=== PATIENT | male | born 1955 | race Caucasian/White ===

== ENCOUNTER 2019-07-05 08:44 | Outpatient (CLI) | payer OTHER ==
[2019-07-05 18:05] LABS: CHOL/HDL RATIO 3.7 (<5.0); CHOLESTEROL 165 mg/dL; GLUCOSE,FASTING 107 mg/dL (70-100); HDL CHOLESTEROL 45 mg/dL; LDL CHOLESTEROL,CALCULATED 106 mg/dL; LDL/HDL RATIO 2.4 (<3.6); VLDL CHOLESTEROL 14 mg/dL
[2019-07-06 13:11] LABS: HEPATITIS C ANTIBODY NON-REACTIVE (NON-REACTIVE)
== END 2019-07-05 08:45 | disposition home or self-care (01) ==
LOC: LAB.S 08:44
PROVIDERS: ATTEND Internal Medicine
DX: Z00.00 Encounter for general adult medical examination without abnormal findings (principal); Z11.59 Encounter for screening for other viral diseases; Z12.11 Encounter for screening for malignant neoplasm of colon; Z13.6 Encounter for screening for cardiovascular disorders; Z13.1 Encounter for screening for diabetes mellitus
CPT/HCPCS: 36415; 80061; 82947; 83721; 86803

== ENCOUNTER 2021-04-10 14:53 | Outpatient (CLI) | payer OTHER | END 2021-04-10 14:54 | disposition home or self-care (01) | LOC: LAB.S 14:53 | PROVIDERS: ATTEND Internal Medicine | DX: Z53.9 Procedure and treatment not carried out, unspecified reason (principal); Z12.11 Encounter for screening for malignant neoplasm of colon ==

== ENCOUNTER 2021-04-11 08:00 | Outpatient (CLI) | payer OTHER ==
[2021-04-11 15:18] LABS: FECAL OCCULT BLOOD (FIT) NEGATIVE (NEGATIVE)
== END 2021-04-11 08:01 | disposition home or self-care (01) ==
LOC: LAB.S 08:00
PROVIDERS: ATTEND Internal Medicine
DX: Z12.11 Encounter for screening for malignant neoplasm of colon (principal)
CPT/HCPCS: 82274

== ENCOUNTER 2023-05-17 11:32 | Outpatient (CLI) | payer MEDICARE, BC ==
[2023-05-17 21:42] LABS: ESTIMATED AVERAGE GLUCOSE 111 mg/dL (70-100); HEMOGLOBIN A1c% 5.5 % (4.27-6.07)
== END 2023-05-17 11:33 | disposition home or self-care (01) ==
LOC: LAB.S 11:32
PROVIDERS: ATTEND Internal Medicine
DX: R73.01 Impaired fasting glucose (principal)
CPT/HCPCS: 36415; 83036

== ENCOUNTER 2023-11-27 08:00 | Outpatient (CLI) | payer MEDICARE, BC ==
[2023-11-27 17:52] LABS: FECAL OCCULT BLOOD (FIT) NEGATIVE (NEGATIVE)
== END 2023-11-27 23:59 | disposition home or self-care (01) ==
LOC: LAB.R 08:00
PROVIDERS: ATTEND Internal Medicine
DX: Z12.11 Encounter for screening for malignant neoplasm of colon (principal)
CPT/HCPCS: 82274

== ENCOUNTER 2023-12-27 08:23 | Outpatient (CLI) | payer MEDICARE, BC ==
--- NOTE | 2023-12-27 10:15 | Ultrasound Report ---
PROCEDURE: Aorta Screening INDICATIONS: HIST OF SMOKING TECHNIQUE: Real time scanning was performed of the aorta and iliac arteries, with image documentatio n. COMPARISON: None. FINDINGS: Aorta: Proximal aortic diameter measures 2.9 cm. Mid-aorta measures 2.2 cm. Distal aortic diameter is 1.7 cm. Iliac arteries: Right common iliac artery measures 1.4 cm. Left common iliac artery measures 1.4 cm . IMPRESSION: Mild ectasia of the aorta measuring 2.9 cm. Recommend 5 year follow-up. Recommended intervals for follow-up imaging of ectatic aortas and abdominal aortic aneurysms, per ACR consensus guidelines: 2.5-2.9 cm: 5 years 3.0-3.4 cm: 3 years 3.5-3.9 cm: 2 years 4.0-4.4 cm: 1 year 4.5-4.9 cm: 6 months + endovascular referral 5.0-5.5 cm: 3-6 months + endovascular referral Reviewed by: John Meyer MD on 12/27/2023 10:13 AM PST Approved by: John Meyer MD on 12/27/2023 10:13 AM PST Station ID: [id number]
== END 2023-12-27 08:24 | disposition home or self-care (01) ==
LOC: DI 08:23
PROVIDERS: ATTEND Internal Medicine
DX: Z13.6 Encounter for screening for cardiovascular disorders (principal); Z87.891 Personal history of nicotine dependence; I77.810 Thoracic aortic ectasia

== ENCOUNTER 2024-01-25 10:23 | Outpatient (CLI) | payer MEDICARE, BC ==
[2024-01-25 15:46] LABS: BUN - BLOOD UREA NITROGEN 24 mg/dL (6-20); CALCIUM 9.9 mg/dL (8.5-10.3); CARBON DIOXIDE - CO2 31 mmol/L (21-32); CHLORIDE 106 mmol/L (101-111); CHOL/HDL RATIO 3.5 (<5.0); CHOLESTEROL 145 mg/dL; CREATININE 0.9 mg/dL (0.6-1.3); GFR - MDRD 84 (>89); GLUCOSE 96 mg/dL (74-104); HDL CHOLESTEROL 42 mg/dL; LDL CHOLESTEROL,CALCULATED 75 mg/dL; LDL/HDL RATIO 1.8 (<3.6); POTASSIUM 4.2 mmol/L (3.5-4.5); SODIUM 141 mmol/L (135-145); TRIGLYCERIDES 140 mg/dL (48-352); VLDL CHOLESTEROL 28 mg/dL
[2024-01-25 20:34] LABS: BILIRUBIN,URINE NEGATIVE (NEGATIVE); GLUCOSE, URINE (UA) NEGATIVE (NEGATIVE); KETONES,URINE (UA) NEGATIVE (NEGATIVE); LEUKOCYTE ESTERASE, URINE NEGATIVE (NEGATIVE); NITRITE,URINE NEGATIVE (NEGATIVE); OCCULT BLOOD,URINE NEGATIVE (NEGATIVE); PROTEIN,URINE NEGATIVE (NEGATIVE); UROBILINOGEN,URINE 0.2 (NORMAL) E.U./dL (NORMAL)
[2024-01-25 20:35] LABS: CLARITY,URINE CLOUDY (CLEAR)
[2024-01-25 20:42] LABS: WBC,URINE 0-3 /HPF (0-3)
[2024-01-25 20:43] LABS: AMORPHOUS SEDIMENT,UR Moderate /LPF; BACTERIA,URINE None Seen /HPF (None Seen); RBC,URINE None Seen /HPF (0-5); SQUAMOUS EPITHELIAL CELL,UR NONE SEEN (<= Few)
[2024-01-25 21:03] LABS: ESTIMATED AVERAGE GLUCOSE 103 mg/dL (70-100); HEMOGLOBIN A1c% 5.2 % (4.27-6.07)
== END 2024-01-25 10:24 | disposition home or self-care (01) ==
LOC: LAB.S 10:23
PROVIDERS: ATTEND Internal Medicine
DX: R73.01 Impaired fasting glucose (principal); R31.0 Gross hematuria; Z13.220 Encounter for screening for lipoid disorders
CPT/HCPCS: 36415; 80048; 80061; 81001; 83036; 83721; 84153; 87086

== ENCOUNTER 2024-02-14 17:22 | Outpatient (CLI) | payer MEDICARE, BC ==
--- NOTE | 2024-02-15 16:40 | Ultrasound Report ---
PROCEDURE: Renal (Retroperitoneal) INDICATIONS: RENAL CALCUS TECHNIQUE: Real-time scanning was performed of the retroperitoneal organs, with image documentation. COMPARISON: None. FINDINGS: Kidneys: Kidneys are normal in size. Right kidney measures 13.4 cm long; left kidney measures 13.2 cm long. Right renal cortical thickness is 1.9 cm; left renal cortical thickness is 2.0 cm. No selvin d masses, hydronephrosis, or nephrolithiasis. Bladder: Pre-void bladder volume is 269 mL. Post-void residual is 21 mL. Pre-void images demonstra te no intraluminal masses or stones. On pre-void images, both ureteral jets are noted with color Dop pler interrogation. (Of note, ureteral jets may not be detectable in up to 25% of cases due to insuf ficient differences in specific gravity between ureteral and bladder urine). Prostate is enlarged me asuring 3.2 x 4.8 x 4.2 cm. Miscellaneous: No free abdominal fluid. IMPRESSION: 1. Normal ultrasound appearance of kidneys. No renal stones or hydronephrosis. 2. A small post void residual (21 cc) in bladder. 3. Prostate is enlarged. Reviewed by: Shawn Perez MD on 02/15/2024 4:39 PM PDT Approved by: Shawn Perez MD on 02/15/2024 4:39 PM PDT Station ID: [id number]
== END 2024-02-14 17:23 | disposition home or self-care (01) ==
LOC: DI 17:22
PROVIDERS: ATTEND Internal Medicine
DX: N40.0 Benign prostatic hyperplasia without lower urinary tract symptoms (principal)

== ENCOUNTER 2024-02-15 10:27 | Outpatient (CLI) | payer MEDICARE, BC ==
[2024-02-15] MEDS ORDERED: iohexoL-300 150 ML BOTTLE ONE (11:24)
--- NOTE | 2024-02-15 16:07 | CT Report ---
PROCEDURE: IVP INDICATIONS: HEMATURIA CONTRAST: Omni 300 140ml TECHNIQUE: A [address] of the abdomen and pelvis was performed. Non-contrast and contrast images were recorded and evaluated at appropriate window settings. Images were recorded and evaluated at appropriate windo w settings. Reformats: coronal and sagittal. For radiation dose reduction, the following was used: au tomated exposure control, adjustment of convex left scoliosis. 3 interval casting with improved align ment at the tibia and fibula fractures. MA and/or kV according to patient size. COMPARISON: Renal ultrasound dated 02/14/2024. FINDINGS: Image quality: Diagnostic. Urinary system: Both kidneys are normal in size. No hydronephrosis or nephrolithiasis on pre-contras t images. No solid masses or complex cysts which require follow up. The opacified renal calyces and ureters appear normal, without filling defect. Bladder wall thickness is normal, accounting for unde rdistention. No calcified bladder stones. No filling defect within the opacified bladder. OTHER Lower chest: Unremarkable. Liver: No solid mass. Gallbladder and biliary tree: No radiopaque stones or wall thickening. No biliary dilation. Spleen: No splenomegaly. Pancreas: No pancreatic ductal dilation. Adrenals: No adrenal nodule. Stomach, bowel and peritoneum: No bowel distension. No pathologic free fluid. Abdominal Lymph nodes: No central or retroperitoneal adenopathy. 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 Reproductive organs: Unremarkable. Pelvic Lymph nodes: Unremarkable. Bones: No aggressive osseous abnormality. There is canal stenosis at L4-L5. Other: None. IMPRESSION: 1. No renal stone, ureteral stone, hydronephrosis, or findings suspicious for malignancy. 2. No acute abdominal process. 3. 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 4. There is canal stenosis at L4-L5. Reviewed by: Hans Radford MD on 02/15/2024 4:06 PM PDT Approved by: Hans Radford MD on 02/15/2024 4:06 PM PDT Station ID: [id number]
[2024-02-15] MEDS: iohexoL-300 150 ML BOTTLE IVP ONE (21:29)
== END 2024-02-15 10:28 | disposition home or self-care (01) ==
LOC: DI 10:27
PROVIDERS: ATTEND Internal Medicine
DX: R31.0 Gross hematuria (principal); M48.061 Spinal stenosis, lumbar region without neurogenic claudication
CPT/HCPCS: Q9967

== ENCOUNTER 2024-02-17 13:06 | Outpatient (CLI) | payer MEDICARE, BC ==
[2024-02-17 14:44] LABS: BASOPHILS # (AUTO) 0.1 10^3/uL (0.0-0.1); EOSINOPHILS # (AUTO) 0.2 10^3/uL (0.0-0.7); EOSINOPHILS % (AUTO) 3.7 %; HGB - HEMOGLOBIN 14.5 g/dL (14.0-18.0); LYMPHOCYTES # (AUTO) 1.2 10^3/uL (1.5-3.5); LYMPHOCYTES % (AUTO) 25.5 %; MEAN CORPUSCULAR HEMOGLOBIN 32.2 pg (27.0-31.0); MEAN CORPUSCULAR VOLUME 97.6 fL (80.0-94.0); MEAN PLATELET VOLUME 12.9 fL (7.4-11.4); MONOCYTES # (AUTO) 0.4 10^3/uL (0.0-1.0); MONOCYTES % (AUTO) 7.6 %; PLT - PLATELET COUNT 211 10^3/uL (130-450); RED BLOOD COUNT 4.51 10^6/uL (4.70-6.10); RED CELL DISTRIBUTION WIDTH 11.3 % (12.0-15.0); WHITE BLOOD COUNT 4.9 x10^3/uL (4.8-10.8)
[2024-02-17 15:33] LABS: ALBUMIN 4.3 g/dL (3.2-5.5); ALBUMIN/GLOBULIN RATIO 1.9 (1.0-2.2); BILIRUBIN,TOTAL 0.4 mg/dL (0.2-1.0); CALCIUM 10.2 mg/dL (8.5-10.3); POTASSIUM 4.7 mmol/L (3.5-4.5); TOTAL PROTEIN 6.6 g/dL (6.4-8.9); URIC ACID 6.4 mg/dL (4.4-7.6)
== END 2024-02-17 13:07 | disposition home or self-care (01) ==
LOC: LAB.S 13:06
PROVIDERS: ATTEND Internal Medicine
DX: N20.0 Calculus of kidney (principal)
CPT/HCPCS: 36415; 80053; 81001; 82043; 82570; 84550; 85025; 87086

== ENCOUNTER 2024-02-18 08:00 | Outpatient (CLI) | payer MEDICARE, BC ==
[2024-02-18 19:53] LABS: BILIRUBIN,URINE NEGATIVE (NEGATIVE); GLUCOSE, URINE (UA) NEGATIVE (NEGATIVE); KETONES,URINE (UA) NEGATIVE (NEGATIVE); LEUKOCYTE ESTERASE, URINE NEGATIVE (NEGATIVE); NITRITE,URINE NEGATIVE (NEGATIVE); OCCULT BLOOD,URINE NEGATIVE (NEGATIVE); PROTEIN,URINE NEGATIVE (NEGATIVE); UROBILINOGEN,URINE 0.2 (NORMAL) E.U./dL (NORMAL)
[2024-02-18 19:54] LABS: CLARITY,URINE CLEAR (CLEAR)
[2024-02-18 20:01] LABS: BACTERIA,URINE Rare /HPF (None Seen); RBC,URINE None Seen /HPF (0-5); SQUAMOUS EPITHELIAL CELL,UR NONE SEEN (<= Few); WBC,URINE 0-3 /HPF (0-3)
[2024-02-18 20:02] LABS: MUCUS,URINE Few Strands
== END 2024-02-18 23:59 | disposition home or self-care (01) ==
LOC: LAB.F 08:00
PROVIDERS: ATTEND Internal Medicine
DX: N20.0 Calculus of kidney (principal)
CPT/HCPCS: 81001; 87086

== ENCOUNTER 2024-02-25 08:00 | Outpatient (CLI) | payer MEDICARE, BC ==
[2024-02-25 16:22] LABS: BILIRUBIN,URINE NEGATIVE (NEGATIVE); GLUCOSE, URINE (UA) NEGATIVE (NEGATIVE); KETONES,URINE (UA) NEGATIVE (NEGATIVE); LEUKOCYTE ESTERASE, URINE NEGATIVE (NEGATIVE); OCCULT BLOOD,URINE NEGATIVE (NEGATIVE); PH,URINE 5.5 PH (5.0-7.5); PROTEIN,URINE NEGATIVE (NEGATIVE); UROBILINOGEN,URINE 0.2 (NORMAL) E.U./dL (NORMAL)
[2024-02-25 16:32] LABS: BACTERIA,URINE None Seen /HPF (None Seen); CLARITY,URINE HAZY (CLEAR); RBC,URINE None Seen /HPF (0-5); SQUAMOUS EPITHELIAL CELL,UR NONE SEEN (<= Few); WBC,URINE 0-3 /HPF (0-3)
== END 2024-02-25 23:59 | disposition home or self-care (01) ==
LOC: LAB.WC 08:00
PROVIDERS: ATTEND Urology
DX: R31.0 Gross hematuria (principal)
CPT/HCPCS: 81001; 87086